=== PATIENT | female | born 1945 | race Two or more races ===

== ENCOUNTER → 2020-05-19 08:00 | Outpatient (CLI) | payer OTHER ==
[~2020-05-19] VITALS: Ht 160 cm; Wt 49.9 kg
[~2020-05-19 08:00] MED LIST: ATIVAN2 M1 PO; CRESTOR40 MG PO; ECOTRIN81 MG PO; LAMICTAL200 M1 PO; NITROGLYCERIN0.4 MG SL; PLAVIX75 MG PO; PROAIR HFA8.5 GM IH; SPIRIVA RESPIMAT4 G1 IH; ZESTRIL10 M1 PO
== END | disposition home or self-care (01) ==
LOC: LAB 08:00 → ADM 14:00 → EDSTATUS 14:00 → SURH 05-25 10:30 → EDSTATUS 05-25 14:00 → SURH 05-25 14:00
PROVIDERS: ATTEND Colon & Rectal Surgery
DX: Z03.818 Encounter for observation for suspected exposure to other biological agents ruled out (principal); Z20.828 Contact with and (suspected) exposure to other viral communicable diseases; K62.3 Rectal prolapse; R15.9 Full incontinence of feces; K92.1 Melena